=== PATIENT | male | born 1945 | race Caucasian/White ===

== ENCOUNTER 2018-07-09 11:36 | Outpatient (REF) | payer OTHER, SELFPAY ==
[2018-07-11 11:03] LABS: Campylobacter PCR SEE COMMENTS; Salmonella PCR SEE COMMENTS; Shiga Toxin PCR SEE COMMENTS; Shigella/Enteroinvasive Ecoli SEE COMMENTS
== END 2018-07-09 11:56 ==
LOC: NCHCN 11:36
PROVIDERS: PCP Internal Medicine; Visit Provider Registered Nurse
DX: R19.7 Diarrhea, unspecified (principal)
CPT/HCPCS: 87329; 87505; 87177

== ENCOUNTER 2018-07-18 11:39 | Outpatient (REF) | payer OTHER, SELFPAY | END 2018-07-18 11:59 | LOC: NCHCN 11:39 | PROVIDERS: PCP Internal Medicine; Visit Provider Registered Nurse | DX: R19.7 Diarrhea, unspecified (principal) | CPT/HCPCS: 87177 ==

== ENCOUNTER 2018-07-19 10:31 | Outpatient (REF) | payer OTHER, SELFPAY | END 2018-07-19 10:51 | LOC: NCHCN 10:31 | PROVIDERS: PCP Internal Medicine; Visit Provider Family Medicine | DX: R19.7 Diarrhea, unspecified (principal) | CPT/HCPCS: 87177 ==

== ENCOUNTER 2019-05-09 13:02 | Outpatient (REF) | payer OTHER, SELFPAY ==
[2019-05-09 20:51] LABS: ESR 5 mm/hr (1-20)
[2019-05-09 21:34] LABS: TSH (W/Ref FT4) 2.04 uIU/mL (0.36-3.74)
[2019-05-09 22:10] LABS: Vitamin B12 349 pg/mL (193-986)
== END 2019-05-09 13:22 ==
LOC: NCHCN 13:02
PROVIDERS: PCP Internal Medicine; Visit Provider Family Medicine
DX: R42 Dizziness and giddiness (principal); G60.9 Hereditary and idiopathic neuropathy, unspecified
CPT/HCPCS: 85652; 82607; 84443

== ENCOUNTER 2019-08-12 13:47 | Outpatient (REF) | payer OTHER, SELFPAY ==
[2019-08-12 22:07] LABS: Anion Gap 7.9 mmol/L (3-11); BUN 22 mg/dL (7-18); CO2 30.1 mmol/L (21.0-32.0); CREATININE 0.75 mg/dL (0.70-1.30); Calcium 8.9 mg/dL (8.5-10.1); Calculated LDL 107 mg/dL (<100); Chloride 102 mmol/L (98-107); Cholesterol 211 mg/dL (<200); Glucose 121 mg/dL (74-106); HDL Cholesterol 47 mg/dL (40-60); Potassium 3.7 mmol/L (3.5-5.1); Sodium 140 mmol/L (136-145); Triglyceride 289 mg/dL (<150)
== END 2019-08-12 14:07 ==
LOC: NCHCN 13:47
PROVIDERS: PCP Internal Medicine; Visit Provider Family Medicine
DX: Z00.00 Encounter for general adult medical examination without abnormal findings (principal); Z13.220 Encounter for screening for lipoid disorders; Z13.228 Encounter for screening for other metabolic disorders
CPT/HCPCS: 80048; 80061

== ENCOUNTER 2019-11-12 20:37 | Outpatient (REF) | payer OTHER, SELFPAY ==
[2019-11-14 10:46] LABS: PSA, Screening 2.5 ng/mL (0.0-6.5)
== END 2019-11-12 20:57 ==
LOC: NCHCN 20:37
PROVIDERS: PCP Internal Medicine; Visit Provider Nurse Practitioner Family
DX: N40.0 Benign prostatic hyperplasia without lower urinary tract symptoms (principal); Z12.5 Encounter for screening for malignant neoplasm of prostate
CPT/HCPCS: 84153

== ENCOUNTER 2021-02-09 10:03 | Outpatient (REF) | payer MEDICARE, OTHER, SELFPAY ==
[2021-02-10 16:13] LABS: COVID-19 RT-PCR UVMMC Result Negative (Negative)
== END 2021-02-09 10:04 | disposition home or self-care (01) ==
LOC: NCHCN 10:03
PROVIDERS: PCP Internal Medicine; Visit Provider Registered Nurse
DX: Z20.822 Contact with and (suspected) exposure to COVID-19 (principal)
CPT/HCPCS: U0003

== ENCOUNTER 2021-08-18 10:34 | Outpatient (REF) | payer MEDICARE, OTHER, SELFPAY ==
--- NOTE | 2021-08-18 09:45 | SKI_PTH ---
PATIENT: Shiva Rojas LOC: NCN #:[id number] AGE/SX: 75/M ROOM: RE08/18/[address]: Radha Castellano : 1945 BED: DIS: 08/18/2021 SPEC #: [id number] RECD: 08/18/21 17:14 STATUS: VIKTOR VOGEL #: [id number] SHAYY: 08/18/21 09:[address]: Radha Castellano DEPT: Surgical Specimen RECD BY: Luba Guo ENTERED: 08/18/21 17:15 SP TYPE: LIBRA WINTER DR: Vladimir Murcia Tissues: 1 - SKIN BIOPSY(SHAVE/PUNCH) Procedures: SKIN LEVEL 4 Comments: [id number]
[2021-08-18 23:07] LABS: PSA, Screening 2.5 ng/mL (<=6.5)
== END 2021-08-18 10:35 | disposition home or self-care (01) ==
LOC: NCHCN 10:34
PROVIDERS: PCP Internal Medicine; Visit Provider Nurse Practitioner Family
DX: C44.629 Squamous cell carcinoma of skin of left upper limb, including shoulder (principal); N40.0 Benign prostatic hyperplasia without lower urinary tract symptoms; Z12.5 Encounter for screening for malignant neoplasm of prostate
CPT/HCPCS: 84153; 88305

== ENCOUNTER 2022-12-21 19:08 | Outpatient (REF) | payer MEDICARE, SELFPAY ==
[2022-12-21 20:54] LABS: Abs Immature Grans 0.01 10^3/uL (0.0-0.06); Absolute Basophil Count 0.03 10^3/uL (0.0-0.2); Absolute Eosinophil Count 0.46 10^3/uL (0.0-0.7); Absolute Lymphocyte Count 1.07 10^3/uL (1.2-3.4); Absolute Monocyte Count 0.61 10^3/uL (0.1-0.8); Absolute Neutrophil Count 3.24 10^3/uL (1.2-6.7); Basophils % 0.6; Eosinophils % 8.5; HCT 42.6 % (40.0-50.0); HGB 14.1 g/dL (13.5-17.5); Immature Grans % 0.2; Lymphocytes % 19.7; MCH 29.3 pg (27.0-33.0); MCHC 33.1 % (32.0-36.0); MCV 89 fL (80-95); MPV 10.5 fL (8.0-11.0); Monocytes % 11.3; Neutrophils % 59.7; Platelet Count 181 10^3/uL (130-400); RBC 4.81 10^6/uL (4.36-5.78); RDW 12.4 % (11.8-14.1); RDW-SD 40.6 fL; WBC 5.42 10^3/uL (4.4-10.8)
== END 2022-12-21 19:09 | disposition home or self-care (01) ==
LOC: NCHCN 19:08
PROVIDERS: PCP Internal Medicine; Visit Provider Family Medicine
DX: R05.8 Other specified cough (principal)
CPT/HCPCS: 85025

== ENCOUNTER 2023-06-14 20:35 | Outpatient (REF) | payer MEDICARE, SELFPAY ==
[2023-06-14 21:35] LABS: Anion Gap 11.1 mmol/L (3-11); BUN 25 mg/dL (7-18); CO2 25.9 mmol/L (21.0-32.0); CREATININE 0.8 mg/dL (0.70-1.30); Calcium 9.6 mg/dL (8.5-10.1); Calculated LDL 126 mg/dL (<100); Chloride 102 mmol/L (98-107); Cholesterol 228 mg/dL (<200); Estimated GFR 91.15 (mL/min/1.73m2); Glucose 94 mg/dL (74-106); HDL Cholesterol 47 mg/dL (40-60); Potassium 4.4 mmol/L (3.5-5.1); Sodium 139 mmol/L (136-145); Triglyceride 276 mg/dL (<150)
[2023-06-15 18:19] LABS: PSA, Diagnostic 3.5 ng/mL (<=6.5)
== END 2023-06-14 20:36 | disposition home or self-care (01) ==
LOC: NCHCN 20:35
PROVIDERS: PCP Internal Medicine; Visit Provider Family Medicine
DX: Z13.220 Encounter for screening for lipoid disorders (principal)
CPT/HCPCS: 80048; 80061; 84153

== ENCOUNTER 2023-08-20 18:05 | Outpatient (REF) | payer MEDICARE, SELFPAY ==
[2023-08-20 15:36] LABS: Abs Immature Grans 0.02 10^3/uL (0.0-0.06); Absolute Basophil Count 0.02 10^3/uL (0.0-0.2); Absolute Eosinophil Count 0.15 10^3/uL (0.0-0.7); Absolute Neutrophil Count 3.73 10^3/uL (1.2-6.7); Basophils % 0.4 %; Eosinophils % 2.7 %; HCT 46.1 % (40.0-50.0); HGB 15.6 g/dL (13.5-17.5); Immature Grans % 0.4 %; Lymphocytes % 21.4 %; MCH 30.1 pg (27.0-33.0); MCHC 33.8 % (32.0-36.0); MCV 89 fL (80-95); MPV 11.4 fL (8.0-11.0); Monocytes % 8.9 %; Neutrophils % 66.2 %; Platelet Count 223 10^3/uL (130-400); RBC 5.19 10^6/uL (4.36-5.78); RDW 12.5 % (11.8-14.1); RDW-SD 41.1 fL; WBC 5.62 10^3/uL (4.4-10.8)
[2023-08-20 16:00] LABS: ALT 41 U/L (16-63); AST 25 U/L (15-37); Albumin 4.2 g/dL (3.4-5.0); Alkaline Phosphatase 57 U/L (46-116); Anion Gap 7.5 mmol/L (3-11); BUN 28 mg/dL (7-18); Bilirubin, Total 0.3 mg/dL (0.2-1.0); CO2 27.5 mmol/L (21.0-32.0); Calcium 9.2 mg/dL (8.5-10.1); Chloride 105 mmol/L (98-107); Estimated GFR 77.52 (mL/min/1.73m2); FREE T4 0.89 ng/dL (0.76-1.46); Glucose 116 mg/dL (74-106); Potassium 4.7 mmol/L (3.5-5.1); Sodium 140 mmol/L (136-145); TSH 1.77 uIU/Ml (0.36-3.74); Total Protein 7.6 g/dL (6.4-8.2)
== END 2023-08-20 18:06 | disposition home or self-care (01) ==
LOC: NCHCN 18:05
PROVIDERS: PCP Internal Medicine; Visit Provider Family Medicine
DX: D64.9 Anemia, unspecified (principal)
CPT/HCPCS: 80053; 84439; 84443; 85025